=== PATIENT | male | born 1990 | race Caucasian/White ===

== ENCOUNTER 2019-09-29 13:42 | Emergency (ER) | payer BC ==
--- NOTE | 2019-09-29 16:08 | EDM.PDOC ---
ED [facility] GENERAL MEDICAL PROBLEM - General Chief Complaint: Genitourinary Problem Stated Complaint: PAIN ON TESTICLES Time Seen by Provider: 09/29/19 16:07 Source of Information: Reports: Patient History Limitations: Reports: No Limitations - History of Present Illness INITIAL COMMENTS - FREE TEXT/NARRATIVE: Patient is a 28-year-old male with no past medical history presenting with a chief complaint of testicular pain. Patient states that the testicle has been painful for about an hour.. The patient states that he had pain shortly after intercourse which was on the left side of the testicle and radiated up into the abdomen. Patient states that he has had several episodes of pain over the past week that were similar but not this severe. Patient denies any fevers, chills, genital trauma, dysuria. Pain is resolved almost completely since arriving in the emergency department. Patient states he had several episodes of vomiting with the pain. In addition to that documented in the HPI above, the additional ROS was obtained : Constitutional: Denies fevers or chills Eyes: Denies vision changes ENMT: Denies sore throat CV: Denies chest pain Resp: Denies SOB GI: Per HPI : Denies painful urination MSK: Denies recent trauma Skin: Denies new rashes Neuro: Denies new numbness or tingling or weakness I have reviewed the triage vital signs Const: Well nourished, well developed, appears stated age Eyes: PERRL, no conjunctival injection HENT: NCAT, Neck supple without meningismus CV: RRR, Warm, well-perfused extremities RESP: CTAB, Unlabored respiratory effort GI: soft, non-tender, non-distended, no masses MSK: No gross deformities appreciated : KEE Velazquez present for examination. Patient demonstrates bilateral testicles with circumcised penis. No testicular swelling. Normal testicular lie. The cremasteric reflex is intact bilaterally. There are no lesions or discharge from the penis. No hernia palpated. Skin: Warm, dry. No rashes Neuro: Alert, license distributor [id number] grossly intact. Sensation and motor function of extremities grossly intact. Psych: Appropriate mood and affect Assessment and plan: Patient is a 28-year-old male with testicular pain. The patient's exam and history are not as concerning for testicular torsion however will obtain ultrasound to rule out torsion. Other differential include epididymitis and orchitis. Scrotal ultrasound was unremarkable. Patient given antibiotics for possible epididymitis. Consideration was made for intermittent torsion and patient instructed to come back to the emergency room immediately for any acute worsening of his pain. All questions addressed and answered. Patient agrees with plan Left Scrotum Pain Score (Numeric/FACES): 2 - Related Data Allergies Allergy/AdvReac Type Severity Reaction Status Date / Time No Known Allergies Allergy Verified 09/29/19 14:00 Home Meds: Home Meds Albuterol [Ventolin HFA] 2 puff INH BID PRN 09/29/19 [History] Fluticasone/Vilanterol [Breo Ellipta 200-25 MCG Inhalation Kit] 1 each IH ONETIME 09/29/19 [History] Past Medical History HEENT History: Reports: None Cardiovascular History: Reports: None Respiratory History: Reports: Asthma Gastrointestinal History: Reports: None Genitourinary History: Reports: None Musculoskeletal History: Reports: None Neurological History: Reports: None Psychiatric History: Reports: None Endocrine/Metabolic History: Reports: None Hematologic History: Reports: None Immunologic History: Reports: None Oncologic (Cancer) History: Reports: None Dermatologic History: Reports: None - Infectious Disease History Infectious Disease History: Reports: Chicken Pox - Past Surgical History Head Surgeries/Procedures: Reports: None Social & Family History - Family History Family Medical History: Noncontributory - Tobacco Use Smoking Status *Q: Never Smoker Second Hand Smoke Exposure: No - Caffeine Use Caffeine Use: Reports: Energy Drinks - Recreational Drug Use Recreational Drug Use: No ED ROS GENERAL - Review of Systems Review Of Systems: See Below ED EXAM, RENAL/ - Physical Exam Exam: See Below Course - Vital Signs Last Recorded V/S: Last Vital Signs Temp 37.1 C 09/29/19 17:10 Pulse 68 09/29/19 17:10 Resp 14 09/29/19 17:10 BP 120/70 09/29/19 17:10 Pulse Ox 99 09/29/19 17:10 - Orders/Labs/Meds Orders: Active Orders 24 hr Category Date Time Status CHLAMYDIA AND GONORRHEA BY TMA Stat Lab 09/29/19 15:51 Ordered Labs: Laboratory Tests 09/29/19 Range/Units 14:05 Urine Color YELLOW Urine Appearance CLEAR Urine pH 6.0 (5.0-8.0) Ur Specific [place] 1.020 (1.001-1.035) Urine Protein NEGATIVE (NEGATIVE) mg/dL Urine Glucose (UA) NEGATIVE (NEGATIVE) mg/dL Urine Ketones NEGATIVE (NEGATIVE) mg/dL Urine Occult Blood NEGATIVE (NEGATIVE) Urine Nitrite NEGATIVE (NEGATIVE) Urine Bilirubin NEGATIVE (NEGATIVE) Urine Urobilinogen 0.2 (<2.0) EU/dL Ur Leukocyte Esterase NEGATIVE (NEGATIVE) Meds: Medications Discontinued Medications Generic Name Dose Route Start Last Admin Trade Name Freq PRN Reason Stop Dose Admin Azithromycin 1,000 mg 09/29/19 16:16 09/29/19 16:46 Zithromax PO 09/29/19 16:17 1,000 mg ONETIME ONE Administration Ceftriaxone Sodium 250 mg/ 1 mls @ 1 mls/sec 09/29/19 16:16 09/29/19 16:46 Lidocaine HCl IM 09/29/19 16:17 1 mls/sec ONETIME ONE Administration Departure - Departure Time of Disposition: 16:58 Disposition: Home, Self-Care 01 Clinical Impression: Epididymitis - Discharge Information Instructions: Epididymitis Referrals: Jeremie Templeton MD [Primary Care Provider] - Forms: ED Department Discharge Additional Instructions: The following information is given to patients seen in the emergency department who are being discharged to home. This information is to outline your options for follow-up care. We provide all patients seen in our emergency department with a follow-up referral. The need for follow-up, as well as the timing and circumstances, are variable depending upon the specifics of your emergency department visit. If you don't have a primary care physician on staff, we will provide you with a referral. We always advise you to contact your personal physician following an emergency department visit to inform them of the circumstance of the visit and for follow-up with them and/or the need for any referrals to a consulting specialist. The emergency department will also refer you to a specialist when appropriate. This referral assures that you have the opportunity for follow-up care with a specialist. All of these measure are taken in an effort to provide you with optimal care, which includes your follow-up. Under all circumstances we always encourage you to contact your private physician who remains a resource for coordinating your care. When calling for follow-up care, please make the office aware that this follow-up is from your recent emergency room visit. If for any reason you are refused follow-up, please contact the [facility] at and asked to speak to the emergency department charge nurse. Sepsis Event Note - Evaluation Sepsis Screening Result: No Definite Risk - Focused Exam Vital Signs: Vital Signs Temp Pulse Resp BP Pulse Ox 09/29/19 17:10 37.1 C 68 14 120/70 99 09/29/19 14:02 36.6 C 72 17 123/84 98 Date Exam was Performed: 09/29/19 Time Exam was Performed: 19:01 - My Orders Last 24 Hours: My Active Orders 09/29/19 15:51 CHLAMYDIA AND GONORRHEA BY TMA Stat - Assessment/Plan Last 24 Hours: My Active Orders 09/29/19 15:51 CHLAMYDIA AND GONORRHEA BY TMA Stat
[2019-09-29] MEDS ORDERED: Azithromycin 250 MG Tab PO ONE (16:16)
[2019-09-29] MEDS ORDERED: cefTRIAXone 250 MG in Lidocaine 1% 1 ML IM ONE (16:16)
--- NOTE | 2019-09-29 16:30 | US ---
Testicular ultrasound: Multiple real-time images of the testicles were obtained. Testicles have a homogeneous ultrasound appearance. No intratesticular abnormality is seen. Arterial and venous blood flow are seen within the testicles. Moderately large hydroceles are noted on both sides. Epididymis showed no abnormal increased vascularity. Measurements: Right testicle: 3.7 x 2.5 x 2.7 cm Left testicle: 4.2 x 2.4 x 2.6 cm Impression: 1. Moderately large hydroceles on both sides. 2. No additional abnormality is appreciated on testicular ultrasound exam. Diagnostic code #2 This report was dictated in [place] Standard Time
== END 2019-09-29 17:10 | disposition home or self-care (01) ==
LOC: MW.ED 13:42
DX: N45.1 Epididymitis (principal); J45.909 Unspecified asthma, uncomplicated
CPT/HCPCS: 76870; 81003; 96372; 99284; A9270; J0696; J2001; 99283